=== PATIENT | male | born 1990 | race Caucasian/White ===

== ENCOUNTER 2018-11-15 17:42 | Emergency (ER) | payer SELFPAY ==
[~2018-11-15] VITALS: Ht 200.6 cm; Wt 102.1 kg
[~2018-11-15 17:42] MED LIST: BACTRIM DS 8001 TA1 PO; CIPROFLOXACIN500 MG PO; CLARITIN10 MG PO; CLINDAMYCIN150 MG PO; FLONASE ALLERG9.9 ML NAS; LEVOFLOXACIN500 MG PO; MOTRIN800 MG PO; NKHM; PREDNISONE10 MG PO; PREDNISONE20 M1 PO; PYRIDIUM200 MG PO; ROBITUSSIN AC 110 ML PO; VIBRAMYCIN100 MG PO; VICO10300 PO; VICODIN 5/500 505 MG PO; VICODIN 500 MG-1 TAB PO; ZOFRAN4 MG PO; ZYRTEC10 MG PO
[2018-11-15 17:54] LABS: BILIRUBIN NEGATIVE (NEGATIVE); BLOOD NEGATIVE (NEGATIVE); CLARITY CLEAR (CLEAR); COLOR YELLOW (YELLOW); GLUCOSE NEGATIVE (NEGATIVE); KETONE NEGATIVE (NEGATIVE); LEUKO ESTERASE NEGATIVE (NEGATIVE); NITRITE NEGATIVE (NEGATIVE)
[2018-11-15 18:05] LABS: BACTERIA 1+
[2018-11-15 18:31] LABS: BASO % 0.4 % (0.0-1.0); EOS # 0.2 10*3/uL (0.0-0.4); EOS % 1.5 % (1.0-4.0); HEMATOCRIT 50.8 % (42.0-52.0); HEMOGLOBIN 17.1 g/dl (14.0-18.0); LYMPH # 2.6 10*3/uL (1.3-4.4); LYMPH % 24.9 % (27.0-41.0); MEAN CELL VOLUME 82.5 fl (80.0-94.0); MEAN CORPUSCULAR HGB 27.8 pg (27.0-31.0); MEAN CORPUSCULAR HGB CONC 33.7 g/dl (33.0-37.0); MEAN PLATELET VOLUME 9.7 fl (9.6-12.3); MONO % 9.9 % (3.0-9.0); NEUT # 6.5 10*3/uL (2.3-7.9); PLATELET COUNT AUTOMATED 192 10*3/uL (130-400); RED BLOOD COUNT 6.16 10*6/uL (4.50-5.90); RED CELL DISTRI WIDTH 13.4 % (0-14.5); WHITE BLOOD COUNT 10.3 10*3/uL (4.8-10.8)
[2018-11-15 18:46] LABS: ALBUMIN 4.5 gm/dl (3.1-4.5); ALKALINE PHOSPHATASE 112 U/L (45-117); BUN 13 mg/dl (7-24); CHLORIDE 103 mmol/L (98-107); POTASSIUM 4.2 mmol/L (3.5-5.1); SGOT/AST 20 IU/L (3-35); SGPT/ALT 63 U/L (12-78); SODIUM 139 mmol/L (136-145); TOTAL PROTEIN 8.3 gm/dL (6.4-8.2)
== END 2018-11-15 20:16 | disposition home or self-care (01) ==
LOC: ED 17:42
PROVIDERS: Nurse Practitioner
DX: E86.0 Dehydration (principal); B34.9 Viral infection, unspecified; I10 Essential (primary) hypertension; Z79.899 Other long term (current) drug therapy

== ENCOUNTER 2020-03-29 16:38 | Emergency (ER) | payer SELFPAY ==
[~2020-03-29] VITALS: Ht 200.6 cm; Wt 102.1 kg
== END 2020-03-29 19:08 | disposition home or self-care (01) ==
LOC: ED 16:38
DX: S01.21XA Laceration without foreign body of nose, initial encounter (principal); Z79.899 Other long term (current) drug therapy; W22.8XXA Striking against or struck by other objects, initial encounter; Y93.89 Activity, other specified; Y92.89 Other specified places as the place of occurrence of the external cause; Y99.8 Other external cause status

== ENCOUNTER 2022-02-21 03:39 | Emergency (ER) | payer SELFPAY ==
[2022-02-21] MEDS ORDERED: METHOCARBAMOL750 M1 PO (03:53)
[2022-02-21] MEDS ORDERED: NAPROXEN250 MG PO (03:53)
== END 2022-02-21 04:14 | disposition home or self-care (01) ==
LOC: ED 03:39
DX: S39.012A Strain of muscle, fascia and tendon of lower back, initial encounter (principal); R11.0 Nausea; R10.30 Lower abdominal pain, unspecified; Z79.899 Other long term (current) drug therapy; X58.XXXA Exposure to other specified factors, initial encounter; Y93.89 Activity, other specified; Y92.89 Other specified places as the place of occurrence of the external cause; Y99.8 Other external cause status

== ENCOUNTER 2022-03-23 06:45 | Emergency (ER) | payer SELFPAY ==
[~2022-03-23] VITALS: Ht 200.6 cm; Wt 102.1 kg
[~2022-03-23 06:45] MED LIST changes: +METHOCARBAMOL750 M1 PO; +NAPROXEN250 MG PO
[2022-03-23] MEDS ORDERED: Motrin,Rufen800 MG PO (07:36)
[2022-03-23] MEDS ORDERED: PHENERGAN25 M3 PO (07:36)
[2022-03-23] MEDS ORDERED: AMOXICILLIN875 MG PO (07:36)
== END 2022-03-23 07:54 | disposition home or self-care (01) ==
LOC: ED 06:45
DX: K08.89 Other specified disorders of teeth and supporting structures (principal); F17.200 Nicotine dependence, unspecified, uncomplicated

== ENCOUNTER 2024-12-28 08:31 | Emergency (ER) | payer SELFPAY ==
[~2024-12-28] VITALS: Ht 200.6 cm; Wt 106.6 kg
[~2024-12-28 08:31] MED LIST changes: +AMOXICILLIN875 MG PO; +Motrin,Rufen800 MG PO; +PHENERGAN25 M3 PO
[2024-12-28] MEDS ORDERED: Ketorolac Tromethamine 60 MG/2 ML VIAL IM ONE (10:50)
[2024-12-28] MEDS ORDERED: AMOX-CLAV 875-1 EACH PO (10:53)
== END 2024-12-28 13:53 | disposition home or self-care (01) ==
LOC: ED 08:31
DX: K04.7 Periapical abscess without sinus (principal); Z20.822 Contact with and (suspected) exposure to COVID-19; J40 Bronchitis, not specified as acute or chronic; I10 Essential (primary) hypertension; G47.00 Insomnia, unspecified; R63.0 Anorexia; R11.0 Nausea; Z98.890 Other specified postprocedural states

== ENCOUNTER 2025-05-06 15:52 | Emergency (ER) | payer SELFPAY ==
[~2025-05-06] VITALS: Ht 200.6 cm; Wt 111.1 kg
[~2025-05-06 15:52] MED LIST changes: +AMOX-CLAV 875-1 EACH PO
[2025-05-06] MEDS ORDERED: PENICILLIN VK500 MG PO (16:51)
[2025-05-06] MEDS ORDERED: NAPROSYN500 MG PO (16:51)
[2025-05-06] MEDS ORDERED: BENZOCAINE 20% 11.9 GM GEL T STA (16:53)
[2025-05-06] MEDS ORDERED: Lidocaine Hydrochloride 15 ML UDC PO STA (16:53)
[2025-05-06] MEDS ORDERED: PENICILLIN V POTASSIUM 500 MG TAB PO ONE (16:55)
[2025-05-06] MEDS ORDERED: Ketorolac Tromethamine 60 MG/2 ML VIAL IM ONE (16:55)
[2025-05-06] MEDS ORDERED: Acetaminophen/Oxycodone 5 MG/325 MG TABLET PO ONE (16:55)
== END 2025-05-06 16:55 | disposition home or self-care (01) ==
LOC: ED 15:52
DX: K04.7 Periapical abscess without sinus (principal); I10 Essential (primary) hypertension; Z79.899 Other long term (current) drug therapy

== ENCOUNTER 2025-05-22 11:23 | Emergency (ER) | payer SELFPAY ==
[~2025-05-22] VITALS: Ht 200.6 cm; Wt 106.6 kg
[~2025-05-22 11:23] MED LIST changes: +NAPROSYN500 MG PO; +PENICILLIN VK500 MG PO
[2025-05-22] MEDS ORDERED: CLINDAMYCIN HCL 300 MG CAPSULE PO ONE (12:10)
[2025-05-22] MEDS ORDERED: Acetaminophen/Hydrocodone HP 10/325 PO ONE (12:10)
[2025-05-22] MEDS ORDERED: methylPREDNISolone sod succ 125 MG VIAL IM ONE (12:10)
[2025-05-22] MEDS ORDERED: CLEOCIN HCL300 MG PO (12:26)
== END 2025-05-22 12:07 | disposition home or self-care (01) ==
LOC: ED 11:23
DX: K08.89 Other specified disorders of teeth and supporting structures (principal); I10 Essential (primary) hypertension; Z79.899 Other long term (current) drug therapy; Z98.890 Other specified postprocedural states

== ENCOUNTER 2025-05-24 12:31 | Emergency (ER) | payer SELFPAY ==
[~2025-05-24] VITALS: Ht 200.6 cm; Wt 106.6 kg
[~2025-05-24 12:31] MED LIST changes: +CLEOCIN HCL300 MG PO
== END 2025-05-24 13:56 | disposition home or self-care (01) ==
LOC: ED 12:31
DX: K04.7 Periapical abscess without sinus (principal); K02.9 Dental caries, unspecified